=== PATIENT | female | born 1995 | race Hispanic/Latino ===

== ENCOUNTER 2018-01-10 10:47 | Emergency (ER) | payer OTHER ==
[2018-01-10 11:10] VITALS: BMI 26.7
[2018-01-10 11:12] VITALS: BP 130/81; PULSE 111; RESP 20; TEMP 98.4; O2SAT 100
--- NOTE | 2018-01-10 12:03 | ED PDOC ---
Lower Extremity Pain/Injury Time Seen by Provider: 01/10/18 12:01 Chief Complaint (Nursing): Lower Extremity Problem/Injury Chief Complaint (Provider): FOOT PAIN History Per: Patient (22 Y/O FEMALE HERE WITH LEFT FOOT PAIN NOTED AFTER EXCESSIVE WALKING. PATIENT CONCERNED FOR STRESS FRACTURE. DID NOT TAKE ANY MEDICATION PRIOR TO ED ARRIVAL.) Past Medical History Reviewed: Historical Data, Nursing Documentation, Vital Signs Vital Signs: Last Vital Signs Temp 98.4 F 01/10/18 11:11 Pulse 111 H 01/10/18 11:11 Resp 20 01/10/18 11:11 BP 130/81 01/10/18 11:11 Pulse Ox 100 01/10/18 11:11 - Family History Family History: States: Unknown Family Hx - Home Medications Home Medications: Ambulatory Orders Medication Instructions Recorded Ondansetron [Zofran] 4 mg PO Q8H #10 tab 01/03/15 Ciprofloxacin/Ciprofloxa HCl 500 mg PO Q12 #14 tab 03/05/15 [Ciprofloxacin] Phenazopyridine HCl [Pyridium] 100 mg PO TID #6 tab 03/05/15 Sulfamethoxazole/Trimethoprim 1 tab PO BID #14 tab 12/26/15 [Bactrim DS 800 mg-160 mg] Ibuprofen [Motrin] 600 mg PO Q8 PRN #21 tab 01/10/18 - Allergies Allergies/Adverse Reactions: Allergies Allergy/AdvReac Type Severity Reaction Status Date / Time No Known Allergies Allergy Verified 01/03/15 10:21 Review of Systems ROS Statement: Except As Marked, All Systems Reviewed And Found Negative Musculoskeletal: Positive for: Foot Pain Physical Exam - Reviewed Nursing Documentation Reviewed: Yes Vital Signs Reviewed: Yes - Physical Exam Appears: Positive for: Well, Non-toxic, No Acute Distress Head Exam: Positive for: ATRAUMATIC, NORMAL INSPECTION, NORMOCEPHALIC Skin: Positive for: Normal Color, Warm, DRY Eye Exam: Positive for: EOMI, Normal appearance, PERRL ENT: Positive for: Normal ENT Inspection Neck: Positive for: Normal, Painless ROM Cardiovascular/Chest: Positive for: Regular Rate, Rhythm Respiratory: Positive for: CNT, Normal Breath Sounds Gastrointestinal/Abdominal: Positive for: Normal Exam, Bowel Sounds, Soft Back: Positive for: Normal Inspection Extremity: Positive for: Normal ROM, Tenderness (LEFT FOOT PAIN LATERAL ASPECT.) Neurologic/Psych: Positive for: Alert, Oriented - ECG O2 Sat by Pulse Oximetry: 100 - Radiology X-Ray: Viewed By Me, Read By Radiologist (NO ACUTE FX) Disposition - Clinical Impression Clinical Impression: Foot sprain - Patient ED Disposition Is Patient to be Admitted: No - Disposition Referrals: Podiatry Clinic [Outside] Disposition: Routine/Home Disposition Time: 12:27 Condition: STABLE Prescriptions: Ibuprofen [Motrin] 600 mg PO Q8 PRN #21 tab PRN Reason: Pain, Moderate (4-7) Instructions: Foot Sprain (ED) Forms: [email or web address] ([place])
--- NOTE | 2018-01-10 12:22 | RAD ---
PROCEDURE: Left Foot Radiographs. HISTORY: injury COMPARISON: None. FINDINGS: BONES: Normal. No fracture. JOINTS: Normal. SOFT TISSUES: Normal. OTHER FINDINGS: None. IMPRESSION: Normal left foot radiographs.
== END 2018-01-10 12:49 | disposition home or self-care (01) ==
LOC: H.ER 10:47
DX: S93.602A Unspecified sprain of left foot, initial encounter (principal); X50.9XXA Other and unspecified overexertion or strenuous movements or postures, initial encounter; Y92.89 Other specified places as the place of occurrence of the external cause